=== PATIENT | female | born 1980 | race African-American/Black ===

== ENCOUNTER 2021-02-26 02:47 | Emergency (ER) | payer SELFPAY ==
[2021-02-26 02:53] VITALS: BP 175/90; PULSE 93; RESP 18; TEMP 36.6; O2SAT 94
--- NOTE | 2021-02-26 07:27 | PC.NURSE ---
Pt ambulated to intake desk, I'm leaving, I have been here since 244 . Pt ambulated out of ED with nl steady gait. No distress noted.
== END 2021-02-27 04:15 | disposition left against medical advice (07) ==
DX: J02.9 Acute pharyngitis, unspecified (principal)
CPT/HCPCS: 99199

== ENCOUNTER 2022-09-20 08:55 | Emergency (ER) | payer BC, SELFPAY ==
--- NOTE | ~2022-09-20 | XR_ITS ---
XR chest 2V DATE: 09/20/2022 10:00 INDICATION: Chest pain and shortness of breath for 2 days, more severe today. TECHNIQUE: PA and lateral views COMPARISON: None FINDINGS: Normal heart size. No hilar or mediastinal enlargement. No pulmonary infiltrate or consolid ation, pleural effusion or pulmonary vascular congestion or pneumothorax is detected. Included skelet al structures are unremarkable. IMPRESSION: Negative Reviewed, dictated and finalized at location A. IMPRESSION: Negative
[2022-09-20 08:59] VITALS: BP 145/91; PULSE 79; RESP 22; TEMP 36.4; O2SAT 100
--- NOTE | 2022-09-20 08:59 | ECG_ITS ---
Measurements Intervals Pillow Rate: 79 P: 55 ME: 150 QRS: 20 QRSD: 77 T: 27 QT: 380 QTc: 436 Interpretive Statements SINUS RHYTHM BASELINE ARTIFACT- I, II, III, AVR, AVL, AVF, V1-V3 NORMAL ECG NO PREVIOUS ECG AVAILABLE FOR COMPARISON Electronically Signed On 09-20-2022 16:17:13 CDT by Barber Carpio D.O.
[2022-09-20 09:09] VITALS: PULSE 89; O2SAT 100
--- NOTE | 2022-09-20 09:50 | ED.CHESTPAIN ---
HPI - Chest Pain General Chief Complaint: Chest Pain Stated Complaint: Chest pain Time Seen by Provider: 09/20/22 09:06 History of Present Illness HPI narrative: 42-year-old female with a history of GERD reports for evaluation of intermittent chest pain and shortness of breath for the past 2 to 3 days. Patient states the chest pain is located in the left anterior chest wall and left lower ribs. States it comes on and at times last 10 seconds to 2 minutes and then spontaneously resolves. She describes the pain as tight and sharp . States the pain is worse when she coughs or takes a deep breath and is tender when she palpates her chest. She denies radiation of pain. States the pain can come on anytime of the day, is not associated with exercise or ambulation. States she initially thought it was heartburn, so she took Tums without relief. She currently takes 40mg Protonix daily. Patient reports shortness of breath that occurred yesterday while she was pulling a heavy wagon, denies shortness of breath at rest. She denies abdominal pain, back pain, urinary complaints, fever, cough, congestion, breast pain or nipple discharge. States the other day she noticed bilateral lower extremity swelling after walking which has since resolved. Denies history of VTE. Denies leg pain. She is currently taking estradiol for vaginal bleeding while on Nexplanon. Denies smoking. Her father has a history of heart disease. She is not currently having chest pain. Related Data Allergies Allergy/AdvReac Type Severity Reaction Status Date / Time ketorolac [From Toradol] Allergy Hives Verified 09/20/22 09:08 Review of Systems Review of Systems: CONSTITUTIONAL: Denies fever, chills EYES: Denies visual changes, redness, or discharge. ENT: Denies rhinorrhea, congestion, sore throat, or otalgia. CARDIOVASCULAR: See HPI RESPIRATORY: Denies cough or dyspnea. GASTROINTESTINAL: Denies abdominal pain, nausea, vomiting, or diarrhea. GENITOURINARY: Denies dysuria or hematuria. SKIN: Denies rash or itching. MUSCULOSKELETAL: Denies back pain, joint pain, or myalgia. NEUROLOGIC: Denies headache, numbness, dizziness, or weakness. PSYCHIATRIC: Denies anxiety or depression. Exam Narrative: GENERAL: Well-appearing, in no acute distress. HEAD: Normocephalic EYES: PERRLA ENT: Nares clear. Mucous membranes moist. Oropharynx without tonsillar hypertrophy exudate or other lesions. NECK: Supple. CHEST: No respiratory distress. Clear to auscultation, no adventitious breath sounds. Tenderness to left anterior chest wall and beneath L breast with palpation. No crepitus or deformities. No lesions or masses palpated in L breast. No nipple discharge or inversion. HEART: Regular rate and rhythm. No murmur heard. Normal peripheral pulses. ABDOMEN: Soft, nontender, normal active bowel sounds. EXTREMITIES: Normal range of motion. No edema. Negative Amos's sign. SKIN: Warm, dry, no rash. NEURO: No focal deficits. Alert and oriented x3. PSYCH: Normal mood and affect. Course Vital Signs Vital signs: Vital Signs Temperature 97.6 F 09/20/22 08:59 Pulse Rate 79 09/20/22 08:59 Respiratory Rate 22 H 09/20/22 08:59 Blood Pressure 145/91 H 09/20/22 08:59 Pulse Oximetry 100 09/20/22 08:59 Oxygen Delivery Room Air 09/20/22 08:59 Temperature 97.6 F 09/20/22 08:59 Pulse Rate 76 09/20/22 11:19 Respiratory Rate 18 09/20/22 11:19 Blood Pressure 122/69 09/20/22 11:19 Pulse Oximetry 100 09/20/22 11:19 Oxygen Delivery Room Air 09/20/22 09:09 MDM - Chest Pain MDM Narrative Medical decision making narrative: 42-year-old female with a history of GERD reports for evaluation of intermittent chest pain and shortness of breath for the past 2 to 3 days, lasting 10 seconds to 2 minutes at a time. Initial vitals revealed mildly elevated blood pressure and respirations of 22 which has since normalized. No leukocytosis, hemoglobin is 10.8 without nazario
[2022-09-20 09:52] LABS: Basophils Percent Auto 0.4 % (0.2-1.2); Eosinophils Absolute Auto 0.1 K/mm3 (0-0.3); Hematocrit 35.3 % (37.0-47.0); Hemoglobin 10.8 g/dL (12.0-15.0); Immature Granulocyte Absolute 0.01 K/mm3 (0.00-0.031); Immature Granulocyte Percent A 0.2 % (0-0.5); Lymphocytes Absolute Auto 1.73 K/mm3 (0.9-3.2); Lymphocytes Percent Auto 37.5 % (18.3-44.2); Mean Corpuscular HGB Conc 30.6 g/dl (32-36); Mean Corpuscular Hemoglobin 23.4 pg (26-34); Mean Corpuscular Volume 76.4 fl (80-100); Monocytes Absolute Auto 0.3 K/mm3 (0.1-0.6); Monocytes Percent Auto 5.4 % (2.6-8.5); Neutrophils Absolute Auto 2.5 K/mm3 (1.3-6.7); Neutrophils Percent Auto 53.5 % (45.5-73.1); Platelet Count Result 321 k/mm3 (150-375); Red Blood Count 4.62 M/mm3 (4.2-5.4); Red Cell Distribution Width 15.2 % (11.5-14.5); White Blood Count 4.6 K/mm3 (4.5-10.0)
[2022-09-20] MEDS: IBUPROFEN 600 MG TABLET PO (09:57)
[2022-09-20 09:59] VITALS: BP 168/105; PULSE 82; RESP 17; O2SAT 100
[2022-09-20 10:04] LABS: INR 0.9; Prothrombin Time 12.8 Seconds (11.1-14.7)
[2022-09-20 10:05] LABS: Alanine Aminotransferase 20 U/L (6-35); Albumin Level 4.2 g/dL (3.5-5.1); Alkaline Phosphatase 78 U/L (38-126); Anion Gap 5 mmol/L (8-16); Aspartate Amino Transferase 25 U/L (14-36); Bilirubin,Total 0.5 mg/dL (0.2-1.3); Blood Urea Nitrogen 9 mg/dL (7-17); Calcium 8.3 mg/dL (8.4-10.2); Carbon Dioxide 28 mmol/L (22-30); Chloride 104 mmol/L (98-107); Estimated CRCL calculation 118 ml/min; Estimated Glomerular Filt Rate > 60; Glucose 110 mg/dL (65-110); Lipase 58 U/L (23-300); Partial Thromboplastin Time 27.4 SECONDS (22.3-36.8); Potassium 3.7 mmol/L (3.4-5.0); Sodium 137 mmol/L (137-145)
[2022-09-20 10:08] LABS: D Dimer 0.67 ug/mL (<0.48)
[2022-09-20 10:16] LABS: NT Pro B Type Natriuretic Pept 23 pg/mL (19.9-100); Troponin I < 0.012 ng/mL (0.000-0.034)
[2022-09-20 11:19] VITALS: BP 122/69; PULSE 76; RESP 18; O2SAT 100
[2022-09-20 13:04] LABS: Troponin I < 0.012 ng/mL (0.000-0.034)
[2022-09-20 13:16] VITALS: BP 128/76; PULSE 73; RESP 16; O2SAT 98
== END 2022-09-20 13:23 | disposition home or self-care (01) ==
PROVIDERS: Emergency Medicine; Emergency Provider Physician Assistant
DX: R07.89 Other chest pain (principal)
CPT/HCPCS: 36415; 71046; 80053; 81025; 83690; 83880; 84484; 85025; 85380; 85610; 85730; 93005; 99284; A9270